=== PATIENT | male | born 2005 | race Caucasian/White ===

== ENCOUNTER 2024-12-17 18:58 | Emergency (ER) | payer OTHER ==
[~2024-12-17] VITALS: Ht 177.8 cm; Wt 104.3 kg
[~2024-12-17 18:58] MED LIST: AMOX25SU PO; METPHE5 PO; PROM6.25SY PO; SULTRIEL PO
[2024-12-17 20:10] VITALS: BP 126/76
[2024-12-17 20:36] LABS: Hematocrit 41.6 % (37.0-53.0); Hemoglobin 14.5 g/dL (13.5-17.5); Mean Corpuscular HGB Conc 34.9 g/dL (31.5-36.5); Mean Corpuscular Volume 89 fL (80-100); NRBC ABSOLUTE 0.00 K/mm3 (0.00-0.02); NRBC Auto 0.0 /100 WBC (0.0-0.2); Platelet Count 246 K/mm3 (150-400); RDW Coefficient Variation 12.4 % (11.7-14.2); RDW Standard Deviation 40.5 fL (35.1-46.3)
[2024-12-17 20:57] LABS: BASOPHILS ABSOLUTE MAN 0.00 K/mm3 (0.00-0.23); BASOPHILS PERCENT MAN 0 % (0-2); EOSINOPHILS ABSOLUTE MAN 0.13 K/mm3 (0.00-0.68); EOSINOPHILS PERCENT MAN 1 % (0-6); LYMPHOCYTES ABSOLUTE MAN 6.16 K/mm3 (0.84-5.20); LYMPHOCYTES PERCENT MAN 45 % (21-46); MONOCYTES ABSOLUTE MAN 0.82 K/mm3 (0.16-1.47); MONOCYTES PERCENT MAN 6 % (4-13); NEUTROPHILS ABSOLUTE MAN 6.57 K/mm3 (1.96-9.15); SEG NEUTROPHILS PERCENT MAN 48 % (41-73)
[2024-12-17 21:01] LABS: Alanine Aminotransfer (ALT/SGP 22.0 U/L (12-78); Albumin, Blood 4.0 g/dL (3.4-5.0); Albumin/Globulin Ratio 1.2 (0.8-1.8); Anion Gap 8.0 mmol/L (3-11); Aspartate Aminotrans (AST/SGOT 14.0 U/L (12-37); Bilirubin, Total 0.3 mg/dL (0.1-1.0); Blood Urea Nitrogen 11.0 mg/dL (8-24); CO2, Blood 25.0 mmol/L (21-32); Calcium, Blood 8.8 mg/dL (8.5-10.1); Chloride, Blood 108.0 mmol/L (98-108); Creatinine, Blood 0.82 mg/dL (0.60-1.20); Globulin, Blood 3.3 g/dL (2.2-4.0); Glucose, Blood 99.0 mg/dL (70-99); Potassium, Blood 3.9 mmol/L (3.5-5.5); Sodium, Blood 137.0 mmol/L (136-145); Total Protein, Blood 7.3 g/dL (6.4-8.2)
[2024-12-17 23:17] LABS: Source, Urine Clean Catch
[2024-12-17 23:22] LABS: Bilirubin, Urine Neg (Neg); Glucose Qualitative, Urine Neg (Neg); Ketones, Urine Neg (Neg); Leukocyte Esterase, Urine Neg (Neg); Protein, Urine Neg (Neg); Specific Gravity, Urine 1.020 (1.003-1.022); Urobilinogen, Urine NORM (Normal)
[2024-12-17 23:30] LABS: Color, Urine Yellow (P-Yellow)
[2024-12-17] MEDS ORDERED: OMEP20ER PO (23:42)
[2024-12-18] MEDS ORDERED: IBUP600 PO (00:10)
[2024-12-18] MEDS ORDERED: FAMO20 PO (00:10)
== END 2024-12-18 00:09 | disposition home or self-care (01) ==
LOC: ER 18:58
PROVIDERS: Student in an Organized Health Care Education/Training Program
DX: R10.32 Left lower quadrant pain (principal); G89.29 Other chronic pain; Z88.0 Allergy status to penicillin; Z88.5 Allergy status to narcotic agent; Z79.899 Other long term (current) drug therapy
CPT/HCPCS: 74177; 80053; 81003; 83690; 85025; 99284-25; Q9967